=== PATIENT | female | born 1985 | race Caucasian/White ===

== ENCOUNTER 2017-03-17 20:52 | Emergency (ER) | payer SELFPAY ==
--- NOTE | 2017-03-17 21:08 | ED Physician Documentation ---
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 This was followed by onset of headache right side and decrease of the arm/visual symptoms about 15-20 minutes after. Now with the headache, but arm and vision are feeling normal.) Timing - duration: Hours Timing - details: Gradual onset, Still present Worst headache ever?: Worst headache ever? Location: Right Quality: Throbbing, Aching Associated symptoms: Nausea, Vomiting. No: Fever, Stiff neck, Weakness, Numbness Worsened by: Light Contributing factors: No: Recent illness, Trauma Similar symptoms before: No diagnosis (had milder similar for couple of hours about 2-3 weeks ago, and did not need to seek medical care.) Recently seen: Not recently seen Review of Systems Constitutional: denies: Fever, Chills Eyes: reports: Decreased vision, Photophobia. denies: Loss of vision Nose: denies: Rhinorrhea / runny nose, Congestion Throat: denies: Sore throat Respiratory: denies: Cough GI: reports: Nausea. denies: Abdominal Pain, Vomiting, Diarrhea : denies: Dysuria, Frequency Skin: denies: Rash, Lesions PD PAST MEDICAL HISTORY - Past Medical History Cardiovascular: None Neuro: None Endocrine/Autoimmune: None - Present Medications Home Medications: Ambulatory Orders Medication Instructions Recorded Confirmed Ondansetron Odt [Zofran] 4 mg TL Q6H PRN #10 tablet 03/17/17 Sumatriptan Succinate [Imitrex] 50 mg PO ONCE PRN #5 tablet 03/17/17 - Allergies Allergies/Adverse Reactions: Allergies Allergy/AdvReac Type Severity Reaction Status Date / Time No Known Drug Allergies Allergy Verified 03/17/17 21:29 PD ED PE NORMAL - Vitals Vital signs reviewed: Yes - General General: Alert and oriented X 3, No acute distress, Well developed/nourished - HEENT HEENT: Atraumatic, PERRL, EOMI, Moist mucous membranes, Pharynx benign - Neck Neck: Supple, no meningeal sign, No adenopathy - Cardiac Cardiac: RRR - Respiratory Respiratory: Clear bilaterally - Abdomen Abdomen: No: Normal bowel sounds, Soft, Non tender, Non distended, No organomegaly, Other - Derm Derm: Normal color, Warm and dry - Extremities Extremities: No deformity, No tenderness to palpate - Neuro Neuro: Alert and oriented X 3, 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, No motor deficit, No sensory deficit, Normal speech, Other - Psych Psych: Normal mood, Normal affect Results - Vitals Vitals: Vital Signs - 24 hr 03/17/17 03/17/17 21:03 22:44 Temperature 36.5 C Heart Rate 73 72 Respiratory 20 16 Rate Blood Pressure 140/97 H 100/63 O2 Saturation 99 98 Oxygen O2 Source Room air PD MEDICAL DECISION MAKING - ED course Complexity details: considered differential (sounds like migraine and improves with migraine-oriented medicaton.), d/w patient, d/w family (mother) Departure - Departure Disposition: 01 Home, Self Care Clinical Impression: Migraine Qualifiers: Migraine type: with aura Status migrainosus presence: without status migrainosus Intractability: not intractable Qualified Code(s): G43.109 - Migraine with aura, not intractable, without status migrainosus Condition: Stable Record reviewed to determine appropriate education?: Yes Instructions: ED Headache Migraine Follow-Up: [facility] [Provider Group] Prescriptions: Sumatriptan Succinate [Imitrex] 50 mg PO ONCE PRN #5 tablet PRN Reason: Headache Ondansetron Odt [Zofran] 4 mg TL Q6H PRN #10 tablet PRN Reason: Nausea / Vomiting Comments: This sounds and acts like a migraine headache. These can recur episodically and could be awhile before another one or in the next few weeks, it is unpredictable. If you get recurrent similar headache/symptoms, you could try Ondansatron for nausea and sumatryptan for the migraine, both meds together, and see if it stops the headache over half hour or so. Can also take Tylenol or Ibuprofen with these medications. Follow up PCP if frequent migraines or other problems. Discharge Date/Time: 03/17/17 22:50
[2017-03-17] MEDS ORDERED: diphenhydrAMINE INJ 50 MG/ML VIAL IVP STA (21:25)
[2017-03-17] MEDS ORDERED: SODIUM CHLORIDE 0.9% 1,000 ML IV ONE (21:25)
[2017-03-17] MEDS ORDERED: METOCLOPRAMIDE 10 MG/2 ML VIAL IVP STA (21:25)
[2017-03-17] MEDS ORDERED: KETOROLAC 60 MG/2 ML VIAL IVP STA (21:25)
[2017-03-17] MEDS ORDERED: METOCLOPRAMIDE 10 MG/2 ML VIAL ONE (21:52)
[2017-03-17] MEDS ORDERED: KETOROLAC 30 MG/ML VIAL ONE (21:53)
[2017-03-17] MEDS ORDERED: diphenhydrAMINE INJ 50 MG/ML VIAL ONE (21:53)
[2017-03-17 22:45] VITALS: BP 100/63
== END 2017-03-17 22:50 | disposition home or self-care (01) ==
LOC: ED 20:52
DX: G43.109 Migraine with aura, not intractable, without status migrainosus (principal)
CPT/HCPCS: 96374; 96375; 99284